=== PATIENT | male | born 1945 | race Caucasian/White ===

== ENCOUNTER 2018-06-21 23:08 | Inpatient (IN) | payer MEDICARE, BC ==
[~2018-06-21] VITALS: Ht 188 cm; Wt 97.5 kg
[2018-06-21] MEDS ORDERED: FLOMAX0.4 MG PO (23:25)
[2018-06-21] MEDS ORDERED: ALBUTEROL1.25 MG/3 (23:28)
[2018-06-21 23:44] LABS: BASOPHILS 0.2 % (0-2); EOSINOPHILS 2.4 % (0-7); HEMATOCRIT 46.4 % (42.0-54.0); IMMATURE GRANULOCYTES 0.1 % (0-5); LYMPHOCYTES 19.1 % (15-50); MCH 30.5 pg (26.0-34.0); MCHC 34.5 g/dL (31.0-37.0); MCV 88.5 fL (80.0-100.0); MEAN PLATELET VOLUME 10.8 fL (7.4-10.4); MONOCYTES 7.8 % (2-11); NEUTROPHILS 70.4 % (40-80); PLATELET COUNT 164 10x3/uL (130-400); RBC 5.24 10x6/uL (4.20-6.10); RDW 13.6 % (11.5-14.5); WBC 8.2 10x3/uL (4.8-10.8)
[2018-06-21 23:54] LABS: ALBUMIN 4.1 g/dL (3.4-5.0); ALKALINE PHOSPHATASE 109 U/L (46-116); ALT (SGPT) 42 U/L (10-68); BILIRUBIN - TOTAL 1.09 mg/dL (0.2-1.3); CALC OSMOLALITY 279 mosm/kg (275-300); CALCIUM 9.1 mg/dL (8.5-10.1); CARBON DIOXIDE 32.3 mmol/L (21.0-32.0); CHLORIDE - SERUM 102 mmol/L (98-107); CREATININE - SERUM 1.2 mg/dL (0.6-1.3); GLUCOSE 101 mg/dL (74-106); POTASSIUM - SERUM 4.2 mmol/L (3.5-5.1); PROTEIN - SERUM 7.7 g/dL (6.4-8.2); SODIUM 138 mmol/L (136-145); UREA NITROGEN 23 mg/dL (7-18); eGFR NON AFRICAN AMERICAN 63 mL/min (90-120)
[2018-06-21 23:57] LABS: AMYLASE - SERUM 83 U/L (25-115); LIPASE 104 U/L (73-393); TROPONIN-I < 0.017 ng/mL (0.000-0.060)
[2018-06-22 00:11] LABS: APPEARANCE CLEAR (CLEAR); BILIRUBIN NEGATIVE (NEGATIVE); COLOR YELLOW (YELLOW); GLUCOSE NEGATIVE (NEGATIVE); KETONE NEGATIVE (NEGATIVE); NITRITE NEGATIVE (NEGATIVE); PROTEIN NEGATIVE (NEGATIVE); UROBILINOGEN NORMAL (NORMAL)
[2018-06-22 01:00] VITALS: BP 130/72
[2018-06-22 03:00] VITALS: BP 132/71
--- NOTE | 2018-06-22 03:00 | NUR ---
RECEIVED PT TO FLOOR FROM ER VIA WHEELCHAIR. PT ALERT & ORIENTED. SET UP NUCLEAR SUPERVISING OPERATOR AND INSTRUCTED ON USE. VITAL SIGNS STABLE. REVIEWED HOME MEDS AND HISTORY. PT C/O ACID REFLUX. CALLED DR ARNOLD AND RECEIVED ORDER FOR PEPCID. NO OTHER NEEDS. WILL CONTINUE TO MONITOR.
[2018-06-22] MEDS ORDERED: PROSCAR5 MG PO (03:30)
[2018-06-22] MEDS ORDERED: LIPITOR40 MG PO (03:31)
[2018-06-22] MEDS ORDERED: TESTOSTERONE CYPIONA IM (03:32)
[2018-06-22] MEDS ORDERED: ALBUTEROL SULF8.5 GM (03:32)
[2018-06-22 05:23] VITALS: BP 132/71; BMI 27.6
--- NOTE | 2018-06-22 07:20 | NUR ---
PATIENT RECIEVED RESTING IN BED, DENIES NEEDS, REPORTS UPPER ABDOMINAL PAIN TOLERABLE WITH LABEL SEWER. PATIENT REFUSES SCD'S AND IS UP ADLIB
[2018-06-22 09:07] VITALS: BP 126/65
[2018-06-22 10:21] VITALS: Ht 188 cm; Wt 97.5 kg
[2018-06-22 14:16] VITALS: BP 108/57
[2018-06-22 17:15] VITALS: BP 117/57
--- NOTE | 2018-06-22 19:15 | NUR ---
RECEIVED CARE FROM DAY NURSE. LYING IN BED. REPORTS NO NEEDS AT THIS TIME. CALL LIGHT AT SIDE. IV INFUSING PER ORDER TO PATENT IV.
--- NOTE | 2018-06-22 21:58 | NUR ---
PT STATED PT HASN'T HAD A URINATED AND IS HAVING LOWER ABDOMINAL PAIN, DR CATALINA WHYTE STATED TO RESTART FLOMAX
--- NOTE | 2018-06-22 21:59 | NUR ---
HS CALLED ABOUT PULLING FLOMAX
--- NOTE | 2018-06-22 23:45 | NUR ---
HS CALLED ABOUT NEED FOR FLOMAX TO BE PULLED
[2018-06-23] VITALS: BP 119/61
[2018-06-23 03:00] VITALS: BP 125/66
--- NOTE | 2018-06-23 03:48 | NUR ---
I have reviewed this patient and I concur with the Shift Assessment completed by the Licensed Practical Nurse today this shift.
--- NOTE | 2018-06-23 04:15 | NUR ---
IV IN RIGHT FA SWOLLEN. DC'D WITH TIP INTACT. RESITED TO LEFT FA. 22 GAUGE X3 STICKS.
[2018-06-23 06:47] LABS: ALKALINE PHOSPHATASE 70 U/L (46-116); BILIRUBIN - TOTAL 1.55 mg/dL (0.2-1.3); CALCIUM 7.5 mg/dL (8.5-10.1); CHLORIDE - SERUM 107 mmol/L (98-107); GLUCOSE 104 mg/dL (74-106); POTASSIUM - SERUM 3.8 mmol/L (3.5-5.1); PROTEIN - SERUM 6.1 g/dL (6.4-8.2); SODIUM 139 mmol/L (136-145); eGFR NON AFRICAN AMERICAN 78 mL/min (90-120)
[2018-06-23 06:49] LABS: ALT (SGPT) 23 U/L (10-68); CALC OSMOLALITY 279 mosm/kg (275-300); UREA NITROGEN 17 mg/dL (7-18)
[2018-06-23 06:50] LABS: BASOPHILS 0.1 % (0-2); EOSINOPHILS 0.6 % (0-7); HEMATOCRIT 39.8 % (42.0-54.0); HEMOGLOBIN 13.3 g/dL (13.5-17.5); IMMATURE GRANULOCYTES 0.4 % (0-5); LYMPHOCYTES 5.8 % (15-50); MCHC 33.4 g/dL (31.0-37.0); MCV 89.6 fL (80.0-100.0); MEAN PLATELET VOLUME 10.5 fL (7.4-10.4); MONOCYTES 5.8 % (2-11); NEUTROPHILS 87.3 % (40-80); PLATELET COUNT 118 10x3/uL (130-400); RBC 4.44 10x6/uL (4.20-6.10); RDW 14.3 % (11.5-14.5); WBC 14.2 10x3/uL (4.8-10.8)
--- NOTE | 2018-06-23 07:20 | NUR ---
PATIENT RECIEVED RESTING IN BED, REPORTS MILD LOWER ABDOMINAL PAIN DUE TO DIVERTICULITIS, TOLERABLE WITH MORPHINE SUBSTATION OPERATOR CHIEF. NO NEEDS VOICED AT THIS TIME, CL IN REACH
[2018-06-23 09:54] VITALS: BP 113/57
[2018-06-23 13:43] VITALS: BP 116/65
[2018-06-23 17:49] VITALS: BP 129/73
--- NOTE | 2018-06-23 19:15 | NUR ---
RECEIVED CARE FROM DAY NURSE. UP AMBULATING IN HALLS.
[2018-06-23 20:00] VITALS: BP 133/61
[2018-06-24] VITALS: BP 132/65
[2018-06-24 03:00] VITALS: BP 130/71
[2018-06-24 07:49] LABS: BASOPHILS 0.1 % (0-2); HEMATOCRIT 37.7 % (42.0-54.0); HEMOGLOBIN 12.7 g/dL (13.5-17.5); IMMATURE GRANULOCYTES 0.3 % (0-5); LYMPHOCYTES 10.9 % (15-50); MCHC 33.7 g/dL (31.0-37.0); MCV 88.9 fL (80.0-100.0); MEAN PLATELET VOLUME 11.1 fL (7.4-10.4); MONOCYTES 7.6 % (2-11); NEUTROPHILS 80.1 % (40-80); PLATELET COUNT 115 10x3/uL (130-400); RBC 4.24 10x6/uL (4.20-6.10); RDW 14.3 % (11.5-14.5); WBC 11.7 10x3/uL (4.8-10.8)
--- NOTE | 2018-06-24 08:00 | NUR ---
MORNING ASSESSMENT COMPLETE. SEE ASSESSMENT FLOWSHEET FOR FURTHER DETIALS. PT LYING IN BED AAO X4 TO PERSON, PLACE, TIME, AND SITUATION. DENIES NEEDS AT THIS TIME. CL IN REACH. SIDE RAULS UP X3 FOR PT SAEFTY. BED IN LOWEST POSITION. L FA PIV INFILTRATED- WILL CALL VASCULAR FOR MIDLINE PLACEMENT.
[2018-06-24 08:07] LABS: CALC OSMOLALITY 281 mosm/kg (275-300); CALCIUM 7.2 mg/dL (8.5-10.1); CARBON DIOXIDE 26.4 mmol/L (21.0-32.0); CHLORIDE - SERUM 108 mmol/L (98-107); CREATININE - SERUM 0.9 mg/dL (0.6-1.3); GLUCOSE 103 mg/dL (74-106); POTASSIUM - SERUM 3.7 mmol/L (3.5-5.1); SODIUM 142 mmol/L (136-145); eGFR NON AFRICAN AMERICAN 88 mL/min (90-120)
[2018-06-24 08:11] LABS: UREA NITROGEN 10 mg/dL (7-18)
[2018-06-24 10:07] VITALS: BP 132/65
[2018-06-24 14:37] VITALS: BP 104/62
--- NOTE | 2018-06-24 15:19 | NUR ---
NUTRITION F/U DIET ADVANCED TO CLEAR LIQUID. WILL MONITOR FURTHER DIET ADVANCEMENT, PO INTAKE. ASSIST WITH NUTRITION SUPPORT IF NEEDED. RD FOLLOWING
[2018-06-24 18:12] VITALS: BP 166/78
--- NOTE | 2018-06-24 19:45 | NUR ---
PT UP AMBULATING IN HALLS. NO SIGNS OF DISTRESS. WILL CONT TO MONITOR
--- NOTE | 2018-06-24 21:00 | NUR ---
PT SITTING UP IN BED, NO SIGNS OF DISTRESS. ALERT AND ORIENTED. ABD DISTENDED, TENDER. PAIN CONTROLLED BY MORPHINE PROPERTY ANALYST. DENIES NEEDS AT THIS TIME. CL IN REACH, WILL CONT TO MONITOR
[2018-06-24 21:57] VITALS: BP 147/73
[2018-06-25 01:45] VITALS: BP 148/71
[2018-06-25 05:19] VITALS: BP 139/74
[2018-06-25 06:32] LABS: BASOPHILS 0.2 % (0-2); HEMATOCRIT 36.7 % (42.0-54.0); HEMOGLOBIN 12.4 g/dL (13.5-17.5); IMMATURE GRANULOCYTES 0.1 % (0-5); LYMPHOCYTES 9.4 % (15-50); MCHC 33.8 g/dL (31.0-37.0); MCV 88.6 fL (80.0-100.0); MEAN PLATELET VOLUME 10.9 fL (7.4-10.4); MONOCYTES 10.1 % (2-11); NEUTROPHILS 78.2 % (40-80); PLATELET COUNT 128 10x3/uL (130-400); RBC 4.14 10x6/uL (4.20-6.10); RDW 13.8 % (11.5-14.5)
[2018-06-25 06:37] LABS: WBC 8.4 10x3/uL (4.8-10.8)
[2018-06-25 07:34] LABS: CALC OSMOLALITY 276 mosm/kg (275-300); CALCIUM 7.4 mg/dL (8.5-10.1); CARBON DIOXIDE 26.3 mmol/L (21.0-32.0); CHLORIDE - SERUM 107 mmol/L (98-107); CREATININE - SERUM 0.9 mg/dL (0.6-1.3); GLUCOSE 124 mg/dL (74-106); POTASSIUM - SERUM 3.4 mmol/L (3.5-5.1); SODIUM 139 mmol/L (136-145); UREA NITROGEN 8 mg/dL (7-18); eGFR NON AFRICAN AMERICAN 88 mL/min (90-120)
--- NOTE | 2018-06-25 08:21 | NUR ---
AWAKE AND ALERT. ORIENTED X3. C/O TO MANY FLUIDS THIS AM. WILL MONITOR. LUNGS ARE CLEAR BUT DIMINISHED IN LOWER LOBES. SKIN IS INTACT IWTHOUT REDNESS. MIDLINE TO RIGHT UPPER ARM IS PATENT WITHOUT REDNESS AT INSERTION SITE. UP TO BR PER SELF. DENIES NEEDS.
[2018-06-25 08:55] VITALS: BP 130/74
--- NOTE | 2018-06-25 09:00 | NUR ---
OFF UNIT VIA FOR EXRAY.
--- NOTE | 2018-06-25 09:15 | NUR ---
RETURNED FROM [facility]. REPORTED NO DIFFICULTY WHILE GONE.
--- NOTE | 2018-06-25 11:00 | NUR ---
RESTING QUIETLY IN BED. DENIES NEEDS. NO SOB NOTED.
[2018-06-25 12:24] VITALS: BP 155/87
--- NOTE | 2018-06-25 14:00 | NUR ---
BED LINENS AND OXYGEN TUBING CHANGED PER REQUEST. DENIES FURTHER REQUESTS
[2018-06-25 16:45] VITALS: BP 108/72
--- NOTE | 2018-06-25 18:00 | NUR ---
IN ROOM. DENIES NEEDS. NO CHANGES NOTED.
--- NOTE | 2018-06-25 18:00 | NUR ---
UP AMBULATED IN HALLS PER SELF. DENIES NEEDS. NO SOB NOTED WITH EXERTION. NO CHANGES NOTED.
--- NOTE | 2018-06-25 19:45 | NUR ---
PT UP AMBULATING HALLS BY SELF. WITHOUT DISTRESS. ALERT AND ORIENTED. DENIES NEEDS. WILL CONT TO MONITOR
[2018-06-25 21:18] VITALS: BP 159/81
[2018-06-26 05:33] LABS: BASOPHILS 0.4 % (0-2); EOSINOPHILS 3.5 % (0-7); HEMATOCRIT 37.8 % (42.0-54.0); HEMOGLOBIN 12.8 g/dL (13.5-17.5); LYMPHOCYTES 14.7 % (15-50); MCH 29.6 pg (26.0-34.0); MCHC 33.9 g/dL (31.0-37.0); MCV 87.5 fL (80.0-100.0); MEAN PLATELET VOLUME 10.6 fL (7.4-10.4); MONOCYTES 14.8 % (2-11); NEUTROPHILS 66.6 % (40-80); RBC 4.32 10x6/uL (4.20-6.10); RDW 13.6 % (11.5-14.5); WBC 7.6 10x3/uL (4.8-10.8)
[2018-06-26 05:47] LABS: CALC OSMOLALITY 286 mosm/kg (275-300); CALCIUM 7.9 mg/dL (8.5-10.1); CARBON DIOXIDE 28.2 mmol/L (21.0-32.0); CHLORIDE - SERUM 109 mmol/L (98-107); CREATININE - SERUM 0.9 mg/dL (0.6-1.3); GLUCOSE 104 mg/dL (74-106); POTASSIUM - SERUM 3.2 mmol/L (3.5-5.1); SODIUM 145 mmol/L (136-145); UREA NITROGEN 7 mg/dL (7-18); eGFR NON AFRICAN AMERICAN 88 mL/min (90-120)
[2018-06-26 05:53] LABS: PLATELET COUNT 157 10x3/uL (130-400)
[2018-06-26 05:59] VITALS: BP 164/84
[2018-06-26] MEDS ORDERED: LEVAQUIN750 MG PO (08:58)
[2018-06-26] MEDS ORDERED: HYDROCODON-ACE1 EA10 PO (08:59)
[2018-06-26] MEDS ORDERED: FLAGYL500 MG PO (08:59)
--- NOTE | 2018-06-26 09:16 | MORECARE ---
CASE MANAGEMENT DISCHARGE SUMMARY PATIENT: ASHER CHOE UNIT: [id number] ADM DATE: 06/22/18 AGE: 73 : 47 SEX: M ROOM/BED: D.2230 AUTHOR: SILVIANO JARRELL PHYSICIAN: REFERRING PHYSICIAN: KAREY ARNOLD MD DATE OF SERVICE: 06/26/18 Discharge Plan Patient Name: ASHER CHOE Facility: [facility]:[place] : 1945 Planned Disposition: Home Anticipated Discharge Date: 06/26/18 Discharge Date: Expected LOS: 4 Initial Reviewer: [email or web address] Initial Review Date: 06/26/2018 Generated: 06/26/18 10:16 am Patient Name: ASHER CHOE Page [id number] at 0916 All edits/amendments must be made on the electronic document DICTATION DATE: 06/26/18915 DEVELOPER ANALYST: KENDALL 06/26/18915 RPT#: [id number] DC DATE: STATUS: ADM IN [facility] [address] [place] [address] END OF REPORT
--- NOTE | 2018-06-26 09:24 | MORECARE ---
CASE MANAGEMENT DISCHARGE SUMMARY PATIENT: ASHER CHOE UNIT: [id number] ADM DATE: 06/22/18 AGE: 73 : 47 SEX: M ROOM/BED: D.2230 AUTHOR: SILVIANO JARRELL PHYSICIAN: REFERRING PHYSICIAN: KAREY ARNOLD MD DATE OF SERVICE: 06/26/18 Discharge Plan Patient Name: ASHER CHOE Facility: [facility]:[place] : 1945 Planned Disposition: Home Anticipated Discharge Date: 06/26/18 Discharge Date: Expected LOS: 4 Initial Reviewer: [email or web address] Initial Review Date: 06/26/2018 Generated: 06/26/18 10:23 am Comments DCP- Discharge Planning Updated by [email or web address]: Sylvia Kennedy on 06/26/18 8:[address] Patient Name: ASHER CHOE Admission Status: ER Accout number: [id number] Admission Date: 06-22-2018 : 1945 Admission Diagnosis: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 CM educated patient on the CM role and verbal consent given by patient to complete assessment. Patient lives at home with his . At discharge patient plans to return and feels this is a safe discharge. CM discussed availability of home health, rehab services, and medical equipment. Patient denied known discharge needs at this time. He is being discharged home today, declines home health. States he's still very active and independent. CM will continue to follow and will assist as needed with dc plans/needs. Oil Sprayer: Sylvia Kennedy DCPIA - Discharge Planning Initial Assessment Updated by [email or web address]: Sylvia Kennedy on 06/26/18 9:16 am * Is the patient Alert and Oriented? Yes * How many steps to enter\exit or inside your home? 0/0 * PCP Dr. Hernandez * Pharmacy [facility] or mail order * Preadmission Environment Home with Family * ADLs Independent * Equipment CPAP Nebulizer Oxygen * List name and contact numbers for known caregivers / representatives who currently or will assist patient after discharge: Mari henson - [phone] (home) [phone] * Verbal permission to speak to the caregivers and representatives has been obtained from the patient. Yes * Community resources currently utilized None * Please name any agencies selected above. [facility] is DME * Additional services required to return to the preadmission environment? No * Can the patient safely return to the preadmission environment? Yes * Has this patient been hospitalized within the prior 30 days at any hospital? No Coverage Notice Reviewer: [email or web address] Virgilio Kennedy Notice Issued Date-Time: 06/26/2018 9:18 Notice Type: IM Discharge Notice Notice Delivered To: Patient Relationship to Patient: Self Project Design Engineer Name: Delivery Method: HAND - Hand Delivered Nadia Days: Prior Verbal Notification: Recipient Understood Notice: Yes Recipient Signature: Yes Med Rec Note Co-signed by Attending: Coverage Notice Comment: IMM explained, signed, given, copy placed in MR Last DP export: 06/26/18 8:16 a Patient Name: ASHER CHOE Page [phone] at 0924 All edits/amendments must be made on the electronic document DICTATION DATE: 06/26/18922 CAD INTERN: KENDALL 06/26/18922 RPT#: [id number] DC DATE: STATUS: ADM IN [facility] [address] [place] [address] END OF REPORT
[2018-06-26 09:41] VITALS: BP 154/75
--- NOTE | 2018-06-26 11:25 | NUR ---
MIDLINE REMOVED FROM RIGHT UPPER ARM, MINIMAL BLEEDING NOTED. COVERED WITH STERILE DRESSING. DISCHARGE INSTRUCTIONS GIVEN TO PATIENT ALONG WITH [facility].
--- NOTE | 2018-06-26 12:34 | NUR ---
PATIENT REQUEST TO WALK TO FRONT DOOR TO MEET .
== END 2018-06-26 12:35 | disposition home or self-care (01) | DRG 392 ==
LOC: D.ER 23:08 → D.MS 06-22 01:22
PROVIDERS: Family Medicine; ADMIT Surgery; ATTEND Surgery
DX: K57.20 Diverticulitis of large intestine with perforation and abscess without bleeding (principal); J45.909 Unspecified asthma, uncomplicated

== ENCOUNTER 2019-11-27 12:26 | Inpatient (IN) | payer MEDICARE, BC ==
[~2019-11-27] VITALS: Ht 188 cm; Wt 96.8 kg
[2019-11-27] VITALS (7 sets, daily range): BP systolic 115–155; BP diastolic 74–90
--- NOTE | ~2019-11-27 | HEMODYNAMI ---
PATIENT:ASHER CHOE MEDICAL RECORD: [id number] : 49 LOCATION:Seth Seth2215 ADMISSION DATE: 11/27/19 Generatedon:11/30/201912:01 Patient name: ASHER CHOE Patient #: [id number] SSN: : 1945 Date of study: 11/30/2019 Page: Of Hemodynamic Procedure Report Patient Data Patient Demographics Procedure consent was obtained First Name: ASHER Gender: Male Last Name: DAIJA : 1945 Middle Initial: CORNELIUS Age: 74 year(s) Patient #: [id number] Race: Unknown Additional ID: [id number] Contact details [address]: [address] [place] [address] State: [place] City: [place] Zip code: [address] Admission Admission Data Admission Date: 11/27/2019 Admission Time: 14:09 Room #: D.2215 Procedure Procedure Types Cath Procedure Peripheral Cath Diagnostic Procedure Miscellaneous Chest Tube Placement Procedure Description Procedure Date Procedure Date: 11/30/2019 Procedure Start Time: 11:35 Procedure Staff Name Function Susan Cote MD Performing Physician DELLA VALENTINE RT Monitor Johnathon Donnelly RT Scrub Lori LABOY RN Nurse Procedure Data Cath Procedure Fluoroscopy Diagnostic fluoroscopy Total fluoroscopy Time: 1 time: 1 min min Diagnostic fluoroscopy Total fluoroscopy dose: 7 dose: 7 mGy mGy Procedure Medications Medication Administration Route Dosage Fentanyl I.V. 100 mcg Hemodynamics Rest Heart Rate: 92 (bpm) Snapshots Pre Cath Intra NCS Post Cath Vital Signs Time Heart Resp SPO2 etCO2 NIBP (mmHg) Rhythm Pain Sedation Rate (ipm) (%) (mmHg) Status Level (bpm) 11:34:25 88 8 0 158/94(125) NSR 0 (11) 10(A) , No pain 11:38:47 91 13 95 0 158/83(132) NSR 0 (11) 10(A) , No pain 11:43:07 101 17 96 0 169/99(125) NSR 0 (11) 10(A) , No pain 11:47:29 89 17 93 0 158/87(114) NSR 0 (11) 10(A) , No pain 11:52:06 91 24 93 0 143/75(121) NSR 0 (11) 10(A) , No pain 11:56:05 0 No Cuff NSR 0 (11) 10(A) , No pain 12:00:05 0 No Cuff NSR 0 (11) 10(A) , No pain Medications Time Medication Route Dose Verified Delivered Reason Notes Effectivenes s by by 11:40:46 Fentanyl I.V. 100 M J Rocael Minner for [facility] MD LABOY pain flattening press operator Log Time Note 11:07:29 Use device set IR Diagnostic 11:07:30 Bag Decanter (2002S) opened to sterile field. 11:07:30 Sterile Angiographic Pack opened to sterile field. 11:07:31 Tegaderm 4 x 4 (1626W) opened to sterile field. 11:21:24 Johnathon [facility] RT (R) (CV) sent for patient. Start room use. 11:21:40 Time tracking: Regular hours (M-F 7:00 - 5:00) 11:22:03 Plan of Care:Hemodynamics will remain stable., Cardiac rhythm will remain stable., Comfort level will be maintained., Respiratory function will remain adequate., Patient/ family verbilizes understanding of procedure., Procedure tolerated without complication., Recovers from procedure without complications.. 11:22:11 Patient received from Med/Surg to IR Alert and oriented. Tansferred to table in Supine position. 11:22:15 Signed procedure consent form obtained from patient. 11:22:17 Correct patient and procedure confirmed by team. 11:22:18 ECG and BP/O2 sat monitors applied to patient. 11:22:20 Full Disclosure recording started 11:22:22 - 11:22:28 H&P Date Dictated: 11/30/2019 Within 30 days and on chart.. 11:22:38 Pre-procedure instructions explained to patient. 11:22:39 Pre-op teaching completed and patient verbalized understanding. 11:22:41 Family unavailable. 11:22:48 Is the patient allergic to Iodine/contrast media? No. 11:22:50 Is patient on blood thinner?No 11:22:53 Patient diabetic? No. 11:22:59 ----Pre-sedation anethsthesia assessment.---- 11:23:04 Previous problem with sedation/anesthesia? No ? 11:23:06 Snore? No 11:23:07 Sleep apnea? No 11:23:10 Deviated septum? No 11:23:14 Opens mouth fully? Yes 11:23:15 Sticks out tongue? Yes 11:23:26 Airway obstruction? No ? 11:23:28 Dentures? No ? 11:23:40 IV patent on arrival in left hand with 0.9% NaCl at [facility]. 11:23:46 Sharps counted by scrub and verified by R.N. 11:23:46 Alarms reviewed by R. N. 11:23:58 Right Chest was prepped with chlora-prep and draped in sterile fashion. 11:33:11 Vital chart was started 11:33:12 Baseline sample Acquired. 11:33:45 Physician arrived 11:33:46 --------ALL STOP TIME OUT------ 11:33:47 Final Timeout: patient, procedure, and site verified with staff and physician. All members of the team are in agreement. 11:33:53 Right chest site verified by team. 11:34:00 Fire Safety Assessment: A--An alcohol-based skin anteseptic being used preoperatively., C--Open oxygen or nitrous oxide is being used. 11:34:09 Sedation plan: Local Anesthetic Medication:Lidocaine 11:35:21 Procedure started. 11:35:27 Local anesthetic to Chest area with Lidocaine 1% by Susan Cote MD.INITIAL ACCESS ONLY 11:36:36 GLIDE WIRE ANGLE 180cm ([id number]) opened to sterile field. 11:36:37 Cook MULTIPURPOSE 20FR drainage catheter ([id number]) opened to sterile field. 11:40:08 Drain bag connector([id number]) opened to sterile field. 11:40:46 Fentanyl 100 mcg I.V. was administered by Lori LABOY RN; for pain; Verbal order read back and verified. 11:42:08 GLIDE WIRE ANGLE 180cm (KT5250) opened to sterile field. 11:42:08 STOPCOCK 3-Way Large Bore ([id number]) opened to sterile field. 11:44:07 PEEL-A-WAY INTRODUCER 18 FR opened to sterile field. 11:49:06 Procedure ended.(Physican Out) 11:49:24 Fluoroscopy time 01.00 minutes. 11:49:28 Fluoroscopy dose: 7 mGy 11:49:28 Flurop Dose total: 7 11:49:31 Sharps counted by scrub and verified by R.N. 11:49:32 Insertion/operative site no bleeding no hematoma. 11:50:17 Post Chest area:stable 11:51:14 Post procedure instruction explained to patient.Patient verbalizes understanding. 11:51:15 Procedure and supply charges have been captured, reviewed, submitted an d are correct. 11:59:19 Report given to CVICU. 11:59:55 Patient transfered to CVICU with Bed. 12:01:19 Vital chart was stopped Device Usage Item Name Manufacture Quantity Catalog Hospital Part Current [facility] Lot# / Number Charge Number Stock Stock Serial# Code Bag Decanter Microtek 1 [id number] 91425 [id number] 5 () Medical Inc. Sterile Cardinal 1 [id number] [id number] 5 Angiographic [facility] Tegaderm 4 x 4 3M 1 1626W 605808 322971 [id number] 5 (1626W) GLIDE WIRE ANGLE Terumo 2 [id number] 163255 244248 175187 5 180cm ([id number]) Cook MULTIPURPOSE [employer] 1 [id number] 481948 083279 5 [id number] 20FR drainage catheter ([id number]) Drain bag [employer] 1 [id number] 893530 441065 [id number] 5 [id number] connector([id number]) STOPCOCK 3-Way [employer] 1 I92948 108903 3101 568111 5 [id number] Large Bore (H84116) PEEL-A-WAY [employer] 1 [id number] 808746 621106 540487 1 [id number] INTRODUCER 18 FR Signature Audit [place] Stage Time Signature Unsigned Intra-Procedure 11/30/2019 Johnathon 12:01:15 PM [place] RT (R) (CV) [facility] [address] [place] [address]
[~2019-11-27 12:26] MED LIST: ALBUTEROL SULF8.5 GM; ALBUTEROL1.25 MG/3; FLAGYL500 MG PO; FLOMAX0.4 MG PO; HYDROCODON-ACE1 EA10 PO; LEVAQUIN750 MG PO; LIPITOR40 MG PO; PROSCAR5 MG PO; TESTOSTERONE CYPIONA IM
[2019-11-27 12:58] LABS: BASOPHILS 0.3 % (0-2); EOSINOPHILS 1.8 % (0-7); HEMATOCRIT 49.6 % (42.0-54.0); IMMATURE GRANULOCYTES 0.2 % (0-5); LYMPHOCYTES 15.3 % (15-50); MCH 31.3 pg (26.0-34.0); MCHC 34.3 g/dL (31.0-37.0); MCV 91.3 fL (80.0-100.0); MEAN PLATELET VOLUME 10.3 fL (7.4-10.4); NEUTROPHILS 74.4 % (40-80); PLATELET COUNT 147 10x3/uL (130-400); RBC 5.43 10x6/uL (4.20-6.10); RDW 14.7 % (11.5-14.5); WBC 8.7 10x3/uL (4.8-10.8)
[2019-11-27 13:09] LABS: CALC OSMOLALITY 275 mosm/kg (275-300); CALCIUM 9.1 mg/dL (8.5-10.1); CARBON DIOXIDE 25.5 mmol/L (21.0-32.0); CHLORIDE - SERUM 103 mmol/L (98-107); CREATININE - SERUM 0.9 mg/dL (0.6-1.3); GLUCOSE 108 mg/dL (74-106); POTASSIUM - SERUM 4.2 mmol/L (3.5-5.1); SODIUM 137 mmol/L (136-145); UREA NITROGEN 16 mg/dL (7-18); eGFR NON AFRICAN AMERICAN 88 mL/min (90-120)
[2019-11-27 13:15] LABS: APTT 33.2 SECONDS (22.8-39.4); INR 0.98 (0.85-1.17)
[2019-11-27 13:25] LABS: ALBUMIN 4.1 g/dL (3.4-5.0); ALKALINE PHOSPHATASE 136 U/L (30-120); ALT (SGPT) 37 U/L (10-68); BILIRUBIN - TOTAL 1.19 mg/dL (0.2-1.3); CREATINE KINASE 404 UL (21-232); PRO BNP 30 pg/mL (0-125); PROTEIN - SERUM 7.7 g/dL (6.4-8.2)
[2019-11-27 13:27] LABS: TROPONIN-I < 0.017 ng/mL (0.000-0.060)
[2019-11-27] MEDS ORDERED: LEXAPRO20 MG PO (19:38)
[2019-11-28 04:55] LABS: BASOPHILS 0.3 % (0-2); EOSINOPHILS 1.9 % (0-7); HEMATOCRIT 47.1 % (42.0-54.0); HEMOGLOBIN 15.9 g/dL (13.5-17.5); IMMATURE GRANULOCYTES 0.1 % (0-5); LYMPHOCYTES 18.9 % (15-50); MCH 31.1 pg (26.0-34.0); MCHC 33.8 g/dL (31.0-37.0); MEAN PLATELET VOLUME 10.5 fL (7.4-10.4); MONOCYTES 9.8 % (2-11); PLATELET COUNT 145 10x3/uL (130-400); RBC 5.12 10x6/uL (4.20-6.10); RDW 14.7 % (11.5-14.5); WBC 7.9 10x3/uL (4.8-10.8)
[2019-11-28 05:15] LABS: CALC OSMOLALITY 275 mosm/kg (275-300); CALCIUM 8.6 mg/dL (8.5-10.1); CARBON DIOXIDE 26.1 mmol/L (21.0-32.0); CHLORIDE - SERUM 102 mmol/L (98-107); GLUCOSE 106 mg/dL (74-106); POTASSIUM - SERUM 4.2 mmol/L (3.5-5.1); SODIUM 137 mmol/L (136-145); UREA NITROGEN 19 mg/dL (7-18); eGFR NON AFRICAN AMERICAN 78 mL/min (90-120)
--- NOTE | 2019-11-28 07:00 | NUR ---
ASSUMED CARE OF PATIENT, PATIENT AAOX4, NO DISTRESS NOTED, CHEST TUBE INTACT, WILL CONTINUE TO MONITOR PATIENT, CALL LIGHT WITHIN REACH
--- NOTE | 2019-11-28 08:30 | NUR ---
WAS GOING TO GIVE MORPHINE IV, BUT PATIENTS IV OUT. CAHT TIP INTACT. TRIED TO RESTART X 2. VEINS BLEW EACH TIME. RADHA RN TO RESTART.
[2019-11-28 09:07] VITALS: BP 141/72
--- NOTE | 2019-11-28 10:00 | NUR ---
RADHA ASHRAF STARTED IV IN LEFT FA X 1 STICK. TOLERATED WITH SMALL AMOUNT OF PAIN. MORPHINE IV TO BE GIVEN.
[2019-11-28 12:31] VITALS: BP 127/61
[2019-11-28 13:29] VITALS: BMI 27.8
--- NOTE | 2019-11-28 16:14 | NUR ---
PATIENT IN BED WITH EYES CLOSED RESTING QUIETLY. CALL LIGHT WITHIN REACH.
[2019-11-28 17:31] VITALS: BP 140/77
[2019-11-28 19:39] VITALS: BMI 27.9
[2019-11-28 22:24] VITALS: BP 125/56
[2019-11-29 01:13] VITALS: BP 174/84
[2019-11-29 06:14] VITALS: BP 148/75
[2019-11-29 06:30] LABS: BASOPHILS 0.2 % (0-2); EOSINOPHILS 2.4 % (0-7); HEMATOCRIT 46.7 % (42.0-54.0); HEMOGLOBIN 15.5 g/dL (13.5-17.5); IMMATURE GRANULOCYTES 0.2 % (0-5); LYMPHOCYTES 16.6 % (15-50); MCH 31.1 pg (26.0-34.0); MCHC 33.2 g/dL (31.0-37.0); MCV 93.6 fL (80.0-100.0); MEAN PLATELET VOLUME 10.6 fL (7.4-10.4); MONOCYTES 12.8 % (2-11); NEUTROPHILS 67.8 % (40-80); PLATELET COUNT 128 10x3/uL (130-400); RBC 4.99 10x6/uL (4.20-6.10); RDW 14.5 % (11.5-14.5); WBC 8.1 10x3/uL (4.8-10.8)
--- NOTE | 2019-11-29 08:00 | NUR ---
PATIENT IN BED WITH EYES CLOSED RESTING QUIETLY. IV INTACT. CT INTACT. CANISTER DUMPED OVER DURING THE NIGHT. CHANGED OUT. NO COMPLAINTS. CALL LIGHT WITHIN REACH.
[2019-11-29 08:57] LABS: CALC OSMOLALITY 269 mosm/kg (275-300); CALCIUM 8.6 mg/dL (8.5-10.1); CARBON DIOXIDE 27.3 mmol/L (21.0-32.0); CHLORIDE - SERUM 100 mmol/L (98-107); CREATININE - SERUM 0.8 mg/dL (0.6-1.3); GLUCOSE 88 mg/dL (74-106); POTASSIUM - SERUM 4.3 mmol/L (3.5-5.1); SODIUM 135 mmol/L (136-145); UREA NITROGEN 14 mg/dL (7-18); eGFR NON AFRICAN AMERICAN > 90 mL/min (90-120)
--- NOTE | 2019-11-29 09:00 | NUR ---
PATIENT COMPLAINTS OF PAIN AND BEING SHORT OF BREATH. O2 SATS WITHIN NORMAL LIMITS. CHEST TUBE INTACT. CALLED RESPIRATORY FOR BREATHING TREATMENT. PATIENT WHEEZING AT THIS TIME. MORPHINE GIVEN. PATIENT VOMITTED AFTER MORPHINE. STATES HE IS BETTER HE IS JUST WANTING A TREATMENT. IV INTACT. RESPIRATORY TO ROOM. CALL LIGHT WITHIN REACH.
[2019-11-29 11:20] VITALS: Ht 188 cm; Wt 96.8 kg
--- NOTE | 2019-11-29 11:20 | NUR ---
PATIENT IN BED WITH IV INTACT. EYES CLOSED RESTING QUIETLY. CT INTACT. CALL LIGHT WITHIN REACH.
[2019-11-29 16:00] VITALS: BP 148/79
--- NOTE | 2019-11-29 20:02 | NUR ---
ASSUMED CARE OF PATIENT AT 1900, PATIENT RESTING QUIETLY WATCHING TV, NO DISTRESS NOTED, RIGHT CHEST TUBE INTACT, DENIES NEEDS AT THIS TIME, WILL CONTINUE TO MONITOR PATIENT, CALL LIGHT WITHIN REACH
[2019-11-29 21:14] VITALS: BP 154/82
[2019-11-30] VITALS (20 sets, daily range): BP systolic 102–169; BP diastolic 49–102
[2019-11-30 06:01] LABS: BASOPHILS 0.4 % (0-2); EOSINOPHILS 2.6 % (0-7); HEMATOCRIT 42.8 % (42.0-54.0); HEMOGLOBIN 14.2 g/dL (13.5-17.5); IMMATURE GRANULOCYTES 0.1 % (0-5); MCH 30.3 pg (26.0-34.0); MCHC 33.2 g/dL (31.0-37.0); MEAN PLATELET VOLUME 10.5 fL (7.4-10.4); MONOCYTES 10.5 % (2-11); NEUTROPHILS 65.4 % (40-80); PLATELET COUNT 148 10x3/uL (130-400); RBC 4.69 10x6/uL (4.20-6.10); RDW 14.3 % (11.5-14.5); WBC 7.1 10x3/uL (4.8-10.8)
[2019-11-30 06:11] LABS: MCV 91.3 fL (80.0-100.0)
[2019-11-30 06:28] LABS: CALC OSMOLALITY 271 mosm/kg (275-300); CALCIUM 8.5 mg/dL (8.5-10.1); CARBON DIOXIDE 25.9 mmol/L (21.0-32.0); CHLORIDE - SERUM 102 mmol/L (98-107); CREATININE - SERUM 0.8 mg/dL (0.6-1.3); GLUCOSE 95 mg/dL (74-106); POTASSIUM - SERUM 3.9 mmol/L (3.5-5.1); SODIUM 136 mmol/L (136-145); UREA NITROGEN 13 mg/dL (7-18); eGFR NON AFRICAN AMERICAN > 90 mL/min (90-120)
--- NOTE | 2019-11-30 08:00 | NUR ---
PATIENT IN BED WITH EYES CLOSED RESTING QUIETLY. NO COMPLAINTS OR SIGNS OF DISTRESS. CALL LIGHT WITHIN REACH .
--- NOTE | 2019-11-30 09:15 | NUR ---
PATIENT STATED HE HAS BEEN SHORT OF BREATH AND TRYING TO GET SOMEONE IN HIS ROOM TO HELP HIM. HE SAID HIS CALL LIGHT WAS ON AND HE WAS YELLING FOR SOMEONE TO COME IN THE ROOM. EXPLAINED TO PATIENT THAT I HAVE BEEN RUNNING IN AND OUT OF ROOMS AND THAT HIS CALL LIGHT WAS NOT ON WHEN I WAS OUT OF THE ROOMS NOR DID I HEAR ANY YELLING. RESPIRATORY IN TO GIVE BREATHING TREATMENT. CHECKED CALL LIGHT AT THIS TIME. NO PROBLEMS NOTED. EXPLAINED TO PATIENT THAT IF HE IS GOING TO GET UP AND GO TO THE BATHROOM HE CAN NOT TAKE HIS O2 OFF AND THAT THE TUBING IS LONG ENOUGH TO GO TO THE BR WITH HIM AND IF HE DOESNT WEAR O2 HE WILL CONTINUE TO BE SOB WHILE GETTING UP. VERBALIZED UNDERSTANDING. IV INTACT. NO MORE COMPLAINTS. CALL LIGHT WITHIN REACH.
--- NOTE | 2019-11-30 09:40 | NUR ---
DR. ALVA STATED TO CALL DR. DONG TO SEE IF HE NEEDS WANTS TO READJUST CT BECAUSE HIS PNEUMO LOOKS LARGER. CALLED DR. DONG. HE STATED HE WOULD LOOK AT THE XRAY.
--- NOTE | 2019-11-30 11:00 | NUR ---
PATIENT TO IR TO GET CT ADJUSTED AT THIS TIME. CONSENT SIGNED ALREADY. GOING TO CVICU AFTER PROCEDURE. WILL HAVE SURGERY TOMORROW WITH DR. GAN.
--- NOTE | 2019-11-30 18:48 | NUR ---
1300-RECIEVED PER PER FLOW SHEET-R LATERAL CHEST TUBE-TO WALL SUCTION-LARGE AIRLEAK NOTED-NO DRAINAGE-ATTEMPED ADDITIONAL IV START X3 WITH NO RESULT-22 L LATERAL SALINE 1630-DR GAN CONTACTED FOR ORIGINAL ORDERS 1730-ANESTHESIA NOTIFIED OF OR IN AM -ORDER REICEVED- 1800-LAB DRAWN FOR TYPE AND SCREEN-CONSENTS OBTAINED
[2019-12-01] VITALS (24 sets, daily range): BP systolic 98–164; BP diastolic 42–89
[2019-12-01 04:43] LABS: BASOPHILS 0.3 % (0-2); EOSINOPHILS 2.4 % (0-7); HEMATOCRIT 44.1 % (42.0-54.0); HEMOGLOBIN 14.6 g/dL (13.5-17.5); IMMATURE GRANULOCYTES 0.1 % (0-5); LYMPHOCYTES 17.1 % (15-50); MCH 30.7 pg (26.0-34.0); MCHC 33.1 g/dL (31.0-37.0); MCV 92.6 fL (80.0-100.0); MEAN PLATELET VOLUME 10.2 fL (7.4-10.4); MONOCYTES 11.7 % (2-11); NEUTROPHILS 68.4 % (40-80); PLATELET COUNT 155 10x3/uL (130-400); RBC 4.76 10x6/uL (4.20-6.10); RDW 14.3 % (11.5-14.5); WBC 7.4 10x3/uL (4.8-10.8)
[2019-12-01 05:07] LABS: CALC OSMOLALITY 270 mosm/kg (275-300); CARBON DIOXIDE 31.2 mmol/L (21.0-32.0); CHLORIDE - SERUM 101 mmol/L (98-107); CREATININE - SERUM 0.9 mg/dL (0.6-1.3); GLUCOSE 92 mg/dL (74-106); SODIUM 135 mmol/L (136-145); UREA NITROGEN 14 mg/dL (7-18); eGFR NON AFRICAN AMERICAN 88 mL/min (90-120)
[2019-12-01 05:10] LABS: POTASSIUM - SERUM 4.9 mmol/L (3.5-5.1)
--- NOTE | 2019-12-01 10:25 | NUR ---
PT ARRIVED IN THE UNIT. PT HOOKED TO ICU MONITORS. PER ISAIAS ASHRAF, PT IS RECEIEVING A UPDRAFT TREATMENT. PT HAS CRACKLES NOTED THROUGH BOTH LUNGS. PT ON A SIMPLE MASK. NSR ON THE MONITOR WITH OCCASIONAL PAC'S. RIGHT SUBCLAVIAN CVL NOTED. SEE IV FLOW SHEET FOR DRUGS. RIGHT LATERAL CHEST TUBES X2 LABLED A AND P CONNECTED TO 20 CM H2O SUCTION WITH SMALL AIR LEAK. FC NOTED WITH CLEAR, YELLOW URINE. EPIDURAL NOTED MIDBACK DRESSING C/D/I. 4ML CONT WITH 4ML Q15 PRN BOLUS. PT AWAKE BUT LETHARGIC FROM ANESTESIA. PT FOLLOWING COMMANDS BUT DRIFS BACK TO SLEEP VERY EAZILY. LEFT RADIAL HEATHER NOTED WITH A GOOD WAVE FORM. WRIST PROTECTOR IN PLACE. CAP REFILL <3 SECONDS. CALL LIGHT IN REACH. WILL GIVE 1:1 CARE UNTILL STABLE.
--- NOTE | 2019-12-01 11:07 | NUR ---
Nutrition Follow-up: NPO for thoracotomy today. Wt: 213# (11/30) Last BM: 11/29 per chart Labs noted: Na 135 Meds noted: Miralax, Mylicon, Protonix -Rec resume diet as tolerated when medically feasible. -Monitor wt. -RD following.
--- NOTE | 2019-12-01 11:20 | NUR ---
DR BRITT PAGED AND NOITIFIED OF 10/[address] BRITT AT THE PTS BEDSIDE AND TOOK OUT OLD EPIDURAL AND PLACED ANOTHER EPIDURAL AT T 10-11. PT NOW STATES PAIN IS 8/10 BUT IS RESTING WITH HIS EYES CLOSED SNORING. VSS. PT APPERS LI. WILL CONT 1:1 CARE.
--- NOTE | 2019-12-01 15:00 | NUR ---
PT STATES PAIN IS 10/10. PT GRIMICING, MOAINING AND GROINING. VESSEL SPECIALIST NOT EFFECTIVE. DR BRITT PAGED. FISH AND WILDLIFE TECHNICIAN AT THE PTS BEDSIDE AND INCREASE RATE TO 5ML WITH 5ML BOLUS. AFTER 15 MINS, PT'S PAIN STILL INTEANSE. DR BRITT PAGED AGAIN AND AT THE PTS BEDSIDE. RATE 10ML/H WITH 5ML BOLUS. PT PAIN NOW 5/10 VSS. WILL CONT PCO.
--- NOTE | 2019-12-01 15:29 | NUR ---
PT BECAME HYPOTENSIVE AND TC INITIATED. PT WAS SCRATING HIS NOSE AND THEN HIS ARM WENT LIMP. PT STATES "MY ARM IS NUMB." PT BREATHING NORMAL AND UNLABORED. TC TITRATED AND BP 120'S/60'S. DR BRITT NOTIFIED. DR MAST CAME TO THE BEDSIDE AND TURNED EPIDURAL OFF. VSS AT THIS TIME. WILL CONT POC.
--- NOTE | 2019-12-01 17:16 | NUR ---
DR BRITT AT THE PTS BEDSDIE AND TURNED EPIDURAL BACK ON CNO 8ML/H ITH 5ML BOLUS. VSS. TC TIRATED OFF.
--- NOTE | 2019-12-01 18:29 | NUR ---
AFIB RATE 100-130'S AND BP MARGINAL AT 98/56. DR HOOPER PAGED. RESTART IV AMIO AT 1MG/H AND KEEP 1MG/H OVER NIGHT. IF PATIENT HEART RATE DOSENT SLOW DOWN AFTER A COUPLE HOURS, CALL DR HOOPER BACK.
[2019-12-02] VITALS (21 sets, daily range): BP systolic 120–151; BP diastolic 53–76
--- NOTE | 2019-12-02 01:28 | NUR ---
ANESTHESIA PAGED AT 0052 WITH RETURN CALL AT 0054. REPORTED AMOUNT OF FENTANYL LEFT IN EPIDURAL. FENTANYL BAG CHANGED BY ANESTHESIA AT 0128.
[2019-12-02 06:13] LABS: BASOPHILS 0.2 % (0-2); EOSINOPHILS 0.4 % (0-7); HEMATOCRIT 41.7 % (42.0-54.0); HEMOGLOBIN 13.7 g/dL (13.5-17.5); IMMATURE GRANULOCYTES 0.3 % (0-5); LYMPHOCYTES 9.5 % (15-50); MCH 30.6 pg (26.0-34.0); MCHC 32.9 g/dL (31.0-37.0); MCV 93.3 fL (80.0-100.0); MEAN PLATELET VOLUME 10.1 fL (7.4-10.4); NEUTROPHILS 77.6 % (40-80); PLATELET COUNT 144 10x3/uL (130-400); RBC 4.47 10x6/uL (4.20-6.10); RDW 14.6 % (11.5-14.5)
[2019-12-02 06:14] LABS: WBC 11.2 10x3/uL (4.8-10.8)
[2019-12-02 06:33] LABS: ALBUMIN 3.2 g/dL (3.4-5.0); BILIRUBIN - TOTAL 2.57 mg/dL (0.2-1.3); CALCIUM 8.1 mg/dL (8.5-10.1); CARBON DIOXIDE 26.4 mmol/L (21.0-32.0); CREATININE - SERUM 1.1 mg/dL (0.6-1.3); MAGNESIUM - SERUM 2.2 mg/dL (1.8-2.4); PHOSPHOROUS 3.6 mg/dL (2.5-4.9); POTASSIUM - SERUM 4.4 mmol/L (3.5-5.1); PROTEIN - SERUM 6.6 g/dL (6.4-8.2)
--- NOTE | 2019-12-02 07:31 | OP ---
PATIENT NAME: ASHER CHOE MEDICAL RECORD: [id number] :49 LOCATION:D.I D.CV03 ADMISSION DATE:11/27/19 SURGEON: GERMANIA GAN MD DATE OF OPERATION: 12/01/2019 SURGEON: Germania Gan MD PROCEDURES PERFORMED: 1. Right thoracotomy with resection of the giant bulla. 2. Mechanical pleurodesis. 3. Bronchoscopy. 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 ANESTHESIA: General endotracheal anesthesia, double lumen. SPECIMENS: Resected bulla. COMPLICATIONS: None. CONDITION: Stable. DISPOSITION: CV ICU. OPERATIVE FINDINGS: As seen on the CT scan a giant apical bulla extending medially across the mediastinum, this was resected, there were no intraoperative air leaks. OPERATIVE INDICATION: Spontaneous pneumothorax, giant bulla. DESCRIPTION OF PROCEDURE: The patient was brought to the operating suite double lumen endotracheal anesthesia was obtained. Bronchoscopy was performed to confirm position. Bronchoscopy was used to remove thick mucus debris at the origin of the right main stem bronchus. The patient turned to left lateral decubitus position with appropriate padding. A right lateral thoracotomy was performed. The section of the rib was taken out to allow a trapdoor type thoracotomy, pleural cavity was entered. The inferior pulmonary ligament was freed. The giant bulla was identified as seen and stapled off. Then, the bulla was resected from the mediastinum as much as safely possible, but not across the midline in front of the aorta. The lung was reinflated. There were no air leaks. Progel was used. Chest tubes were placed apically and inferiorly. After reinflating the lung under water to ensure no air leak, the chest was closed with pericostal sutures running muscle layers, running subcutaneous, running skin, Dermabond. The patient extubated stable to CV ICU. TRANSINT:[id number] Voice Confirmation ID: [id number] DOCUMENT ID: [id number] OPERATIVE REPORT [id number] ASHER CHOE GERMANIA GAN MD at 0731 CC: JASON ALVA MD [id number] DICTATION DATE: 12/01/19 1054 EDGE POLISHER: 12/01/19 [address] [facility] [address] [place] [id number]
--- NOTE | 2019-12-02 08:12 | NUR ---
ALERT AND VERBALLY APPROPRIATE-INCENTIVE DONE WELL-SR ON MONITOR-SCD'S TURNED ON AND PURPOSE EXPLAINED-SCD MACHINE AQUIRED AT THIS TIME
[2019-12-03] VITALS (26 sets, daily range): BP systolic 91–159; BP diastolic 55–82
--- NOTE | 2019-12-03 01:55 | NUR ---
CHG BATH GIVEN WITH PEARSON CARE. DRESSING TO RIGHT LATERAL CHEST CHANGED. SEROUS DRAINAGE NOTED. COMPLETE LINEN CHANGE PROVIDED WELL. PT HAS ATTEMPTED TO USE BEDPAN X2 WITH FLATULENCE ONLY NOTED.
[2019-12-03 05:58] LABS: HEMATOCRIT 38.9 % (42.0-54.0); HEMOGLOBIN 12.9 g/dL (13.5-17.5); MCH 30.8 pg (26.0-34.0); MCHC 33.2 g/dL (31.0-37.0); MCV 92.8 fL (80.0-100.0); MEAN PLATELET VOLUME 10.6 fL (7.4-10.4); RBC 4.19 10x6/uL (4.20-6.10); RDW 14.2 % (11.5-14.5); WBC 10.8 10x3/uL (4.8-10.8)
[2019-12-03 06:25] LABS: ALBUMIN 2.9 g/dL (3.4-5.0); BILIRUBIN - TOTAL 2.68 mg/dL (0.2-1.3); CARBON DIOXIDE 25.2 mmol/L (21.0-32.0); CREATININE - SERUM 1.1 mg/dL (0.6-1.3); POTASSIUM - SERUM 4.2 mmol/L (3.5-5.1); PROTEIN - SERUM 6.2 g/dL (6.4-8.2)
--- NOTE | 2019-12-03 11:11 | NUR ---
Nutrition Follow-up: POD 2 R thoracotomy, resection of giant bulla, bronch, pleurodesis. Pt sleeping soundly at time of visit this AM. Chart reviewed. Diet: Regular PO intake: 15-50% recorded yesterday Wt: 215# (12/02) Last BM: 11/29 per chart Labs noted: Na 131, Ca 8.0, Alb 2.9 Meds noted: Protonix, Miralax, Mylicon -Encourage PO intake and honor food preferences within diet restrictions. -Offer nutrition supplements. -Monitor wt. -RD following.
--- NOTE | 2019-12-03 20:12 | MORECARE ---
CASE MANAGEMENT DISCHARGE SUMMARY PATIENT: ASHER CHOE UNIT: [id number] ADM DATE: 11/27/19 AGE: 74 : [birth year] SEX: M ROOM/BED: D[facility] AUTHOR: CHRYSTAL,DOC PHYSICIAN: REFERRING PHYSICIAN: LANI BAILEY MD DATE OF SERVICE: 12/03/19 Discharge Plan Patient Name: ASHER CHOE Facility: [facility]:[place] : 1945 Planned Disposition: Home Anticipated Discharge Date: Discharge Date: Expected LOS: Initial Reviewer: [email or web address] Initial Review Date: 11/27/2019 Generated: 12/03/19 9:11 pm Comments DCP- Discharge Planning Updated by [email or web address]: Stefany Valentino on 12/03/19 7:[address] LATE ENTRY 12/02/19 Patient Name: ASHER CHOE Admission Status: ER Accout number: [id number] Admission Date: 11-27-2019 : 1945 Admission Diagnosis:PNEUMOTHORAX, UNSPECIFIED Attending: LANI BAILEY Current LOS: 5 Anticipated DC Date: Planned Disposition: Home Primary Insurance: MEDICARE A & B Discharge Planning Comments: CM met with patient to complete initial dc planning assessment. CM educated patient on the CM role and verbal consent given by patient to complete assessment. Patient lives at home with family. Patient is independent. At discharge patient plans to return home and feels this is a safe discharge. CM discussed availability of home health, rehab services, and medical equipment. Patient will have family to transport home. Patient denied known discharge needs at this time. CM will continue to follow and will assist as needed with dc plans/needs. Zoo Veterinarian: Stefany Valentino DCPIA - Discharge Planning Initial Assessment Updated by [email or web address]: Stefany Valentino on 12/03/19 8:08 pm * Is the patient Alert and Oriented? Yes * How many steps to enter\exit or inside your home? * PCP melissa * [facility] * Preadmission Environment Home with Family * ADLs Independent * Other Equipment HOME 02, CPAP, NEBULIZER * List name and contact numbers for known caregivers / representatives who currently or will assist patient after discharge: RAUL CHOE - - [phone], * Verbal permission to speak to the caregivers and representatives has been obtained from the patient. Yes * Community resources currently utilized None * Additional services required to return to the preadmission environment? No * Can the patient safely return to the preadmission environment? Yes * Has this patient been hospitalized within the prior 30 days at any hospital? No Patient Name: ASHER CHOE Page [id number] at 2012 All edits/amendments must be made on the electronic document DICTATION DATE: 12/03/192010 JIG HAND: KENDALL 12/03/192010 RPT#: [id number] DC DATE: STATUS: ADM IN [facility] [address] [place] [address] END OF REPORT
[2019-12-04] VITALS (23 sets, daily range): BP systolic 65–152; BP diastolic 43–110
--- NOTE | 2019-12-04 00:15 | NUR ---
PATIENT RIPPED OUT HIS A-LINE, PRESSURE WAS HELP TO SITE AND HEMOSTASIS MAINTAINED. GAVE INSTRUCTION TO NOT PULL ANYTHING ELSE OUT. CALLED AND NOTIFIED DR VAUGHN. RESTRAINTS APPLIED AT 0100 AND CONTINUOUS OBSERVATION PROVIDED.
[2019-12-04 05:08] LABS: HEMOGLOBIN 13.1 g/dL (13.5-17.5); MCHC 33.6 g/dL (31.0-37.0); MCV 92.4 fL (80.0-100.0); MEAN PLATELET VOLUME 10.6 fL (7.4-10.4); RBC 4.22 10x6/uL (4.20-6.10); RDW 13.9 % (11.5-14.5)
[2019-12-04 05:12] LABS: WBC 7.7 10x3/uL (4.8-10.8)
[2019-12-04 05:17] LABS: ALBUMIN 2.7 g/dL (3.4-5.0); ALKALINE PHOSPHATASE 90 U/L (30-120); ALT (SGPT) 43 U/L (10-68); BILIRUBIN - TOTAL 1.53 mg/dL (0.2-1.3); CALC OSMOLALITY 274 mosm/kg (275-300); CALCIUM 8.2 mg/dL (8.5-10.1); CARBON DIOXIDE 30.1 mmol/L (21.0-32.0); CHLORIDE - SERUM 101 mmol/L (98-107); CREATININE - SERUM 0.9 mg/dL (0.6-1.3); GLUCOSE 104 mg/dL (74-106); POTASSIUM - SERUM 4.3 mmol/L (3.5-5.1); SODIUM 137 mmol/L (136-145); eGFR NON AFRICAN AMERICAN 88 mL/min (90-120)
[2019-12-04 05:19] LABS: UREA NITROGEN 14 mg/dL (7-18)
[2019-12-05] VITALS (23 sets, daily range): BP systolic 122–181; BP diastolic 51–94
--- NOTE | 2019-12-05 00:53 | NUR ---
PT PULLING AT LINES AND TUBES. MULTIPLE ATTEMPTS TO REORIENT. ORDER RECEIVED FOR RESTRAINTS.
[2019-12-05 06:08] LABS: BASOPHILS 0.3 % (0-2); EOSINOPHILS 2.8 % (0-7); HEMATOCRIT 39.5 % (42.0-54.0); IMMATURE GRANULOCYTES 0.1 % (0-5); LYMPHOCYTES 12.1 % (15-50); MCH 30.6 pg (26.0-34.0); MCHC 32.9 g/dL (31.0-37.0); MCV 92.9 fL (80.0-100.0); MONOCYTES 14.8 % (2-11); NEUTROPHILS 69.9 % (40-80); PLATELET COUNT 153 10x3/uL (130-400); RBC 4.25 10x6/uL (4.20-6.10); RDW 13.9 % (11.5-14.5)
[2019-12-05 06:24] LABS: ALBUMIN 2.7 g/dL (3.4-5.0); ALKALINE PHOSPHATASE 97 U/L (30-120); ALT (SGPT) 53 U/L (10-68); BILIRUBIN - TOTAL 1.54 mg/dL (0.2-1.3); CALC OSMOLALITY 271 mosm/kg (275-300); CALCIUM 8.3 mg/dL (8.5-10.1); CARBON DIOXIDE 32.5 mmol/L (21.0-32.0); CHLORIDE - SERUM 100 mmol/L (98-107); GLUCOSE 83 mg/dL (74-106); PROTEIN - SERUM 6.4 g/dL (6.4-8.2); SODIUM 136 mmol/L (136-145); UREA NITROGEN 15 mg/dL (7-18); eGFR NON AFRICAN AMERICAN 78 mL/min (90-120)
--- NOTE | 2019-12-05 11:15 | NUR ---
DR VAUGHN AT BEDSIDE. CT REMOVED USING STERILE TECHNIQUE. VSS WILL CONTINUE TO MONITOR.
--- NOTE | 2019-12-05 12:00 | NUR ---
PEARSON DC. EPIDURAL DC. PT AMBULATED TO CHAIR. VSS WILL CONTINUE TO MONITOR.
--- NOTE | 2019-12-05 15:18 | NUR ---
Nutrition Follow-up: Diet: Regular PO intake: ~50% average. He states that he would eat better if the food wasn't always cold. He does not want Ensure at this time. Last BM: 11/30/19. Wt: 224# (12/05/19); Admit Wt: 217# (11/27/19) Meds noted: miralax Recommend continue current diet. Encouraged PO intake. RD following.
--- NOTE | 2019-12-05 17:00 | NUR ---
PATIENT RESTING IN BED VERBALIZES NO NEEDS WILL CONTINUE POC.
[2019-12-06] VITALS (23 sets, daily range): BP systolic 115–166; BP diastolic 63–88
[2019-12-06 05:31] LABS: BASOPHILS 0.4 % (0-2); EOSINOPHILS 3.3 % (0-7); HEMATOCRIT 43.5 % (42.0-54.0); HEMOGLOBIN 14.7 g/dL (13.5-17.5); IMMATURE GRANULOCYTES 0.3 % (0-5); LYMPHOCYTES 15.6 % (15-50); MCH 31.1 pg (26.0-34.0); MCHC 33.8 g/dL (31.0-37.0); MCV 92.2 fL (80.0-100.0); MEAN PLATELET VOLUME 9.6 fL (7.4-10.4); MONOCYTES 16.7 % (2-11); NEUTROPHILS 63.7 % (40-80); PLATELET COUNT 171 10x3/uL (130-400); RBC 4.72 10x6/uL (4.20-6.10); RDW 13.7 % (11.5-14.5); WBC 7.9 10x3/uL (4.8-10.8)
[2019-12-06 05:38] LABS: CALCIUM 8.6 mg/dL (8.5-10.1); CARBON DIOXIDE 32.6 mmol/L (21.0-32.0); CHLORIDE - SERUM 100 mmol/L (98-107); CREATININE - SERUM 0.8 mg/dL (0.6-1.3); GLUCOSE 113 mg/dL (74-106); SODIUM 137 mmol/L (136-145); eGFR NON AFRICAN AMERICAN > 90 mL/min (90-120)
[2019-12-06 05:40] LABS: CALC OSMOLALITY 273 mosm/kg (275-300); POTASSIUM - SERUM 3.8 mmol/L (3.5-5.1); UREA NITROGEN 10 mg/dL (7-18)
--- NOTE | 2019-12-06 11:17 | NUR ---
1030: DR. VAUGHN HERE. CT CHANGED TO WATER SEAL PER ORDER.
--- NOTE | 2019-12-06 19:00 | NUR ---
REPORT RECEIVED. RECEIVED PATIENT IN BED, RESTING WITH EYES CLOSED. EASILY ROUSED AND ALERT. ORIENTED TO PERSON PLACE AND SITUATION WITH SOME CONFUSION TO DATE/TIME. REORIENTS WELL. SPEECH CLEAR. ASSESSMENT COMPLETED PER FLOW SHEET WITH NO ACUTE DISTRESS OBSERVED. MONITORS CONNECTED TO PATIENT WITH ALARMS SET. VSS. NSR ON MONITOR. RT CT TO WATERSEAL WITH NO LEAK OBSERVED, DRAINING SCANT AMOUNT OF SEROUS FLUID INTO COLLECTION CHAMBER. CALL LIGHT IN REACH AND ABLE TO UTILIZE TO MAKE NEEDS KNOWN. WILL CONT CURRENT POC
[2019-12-07] VITALS (22 sets, daily range): BP systolic 131–161; BP diastolic 55–80
[2019-12-07 05:26] LABS: BASOPHILS 0.4 % (0-2); EOSINOPHILS 4.3 % (0-7); HEMATOCRIT 40.8 % (42.0-54.0); HEMOGLOBIN 13.8 g/dL (13.5-17.5); IMMATURE GRANULOCYTES 0.1 % (0-5); LYMPHOCYTES 13.4 % (15-50); MCHC 33.8 g/dL (31.0-37.0); MCV 91.7 fL (80.0-100.0); MEAN PLATELET VOLUME 9.5 fL (7.4-10.4); MONOCYTES 17.4 % (2-11); NEUTROPHILS 64.4 % (40-80); PLATELET COUNT 165 10x3/uL (130-400); RBC 4.45 10x6/uL (4.20-6.10); RDW 13.9 % (11.5-14.5); WBC 7.7 10x3/uL (4.8-10.8)
[2019-12-07 05:37] LABS: CALC OSMOLALITY 269 mosm/kg (275-300); CARBON DIOXIDE 34.8 mmol/L (21.0-32.0); CHLORIDE - SERUM 101 mmol/L (98-107); CREATININE - SERUM 0.8 mg/dL (0.6-1.3); GLUCOSE 117 mg/dL (74-106); POTASSIUM - SERUM 3.5 mmol/L (3.5-5.1); SODIUM 135 mmol/L (136-145); UREA NITROGEN 10 mg/dL (7-18); eGFR NON AFRICAN AMERICAN > 90 mL/min (90-120)
[2019-12-08] VITALS (24 sets, daily range): BP systolic 126–165; BP diastolic 54–80
[2019-12-08 05:07] LABS: BASOPHILS 0.2 % (0-2); EOSINOPHILS 3.4 % (0-7); HEMATOCRIT 43.8 % (42.0-54.0); HEMOGLOBIN 14.5 g/dL (13.5-17.5); IMMATURE GRANULOCYTES 0.3 % (0-5); LYMPHOCYTES 10.6 % (15-50); MCH 30.5 pg (26.0-34.0); MCHC 33.1 g/dL (31.0-37.0); MCV 92.2 fL (80.0-100.0); MEAN PLATELET VOLUME 9.8 fL (7.4-10.4); NEUTROPHILS 70.5 % (40-80); PLATELET COUNT 198 10x3/uL (130-400); RBC 4.75 10x6/uL (4.20-6.10); RDW 13.7 % (11.5-14.5)
[2019-12-08 05:08] LABS: WBC 10.6 10x3/uL (4.8-10.8)
[2019-12-08 05:15] LABS: CALC OSMOLALITY 275 mosm/kg (275-300); CALCIUM 8.7 mg/dL (8.5-10.1); CARBON DIOXIDE 32.6 mmol/L (21.0-32.0); CHLORIDE - SERUM 102 mmol/L (98-107); CREATININE - SERUM 0.9 mg/dL (0.6-1.3); GLUCOSE 116 mg/dL (74-106); SODIUM 138 mmol/L (136-145); UREA NITROGEN 10 mg/dL (7-18); eGFR NON AFRICAN AMERICAN 88 mL/min (90-120)
--- NOTE | 2019-12-08 07:00 | NUR ---
BEDSIDE REPORT RECEIVED. SHIFT ASSESSMENT COMPLETED PER FLOWSHEET, SEE FLOWSHEET FOR INFORMATION. UPON ENTERING ROOM, PT HAD GOTTEN UP WITHOUT ASSISTANCE TO HIS CHAIR BUT HIS HEART RATE DID INCREASE TO 130. CHEST TUBE IN PLACE. PT DENIES ANY NEEDS OR DISTRESS AT THIS TIME. VSS AFTER SITTING PT DOWN AND TELLING HIM TO SLOW HIS BREATHING DOWN, HEART RATE DECREASED TO 89. WILL CONT TO MONITOR.
--- NOTE | 2019-12-08 10:36 | NUR ---
AT BEDSIDE TO REMOVE RIGHT LATERAL CHEST TUBE. WILL CONT TO MONITOR.
--- NOTE | 2019-12-08 11:04 | NUR ---
CHEST TUBE REMOVED BY WITH THIS NURSE AND GLO ASHRAF AT BEDSIDE. WILL CONT TO MONITOR.
--- NOTE | 2019-12-08 12:28 | NUR ---
Nutrition Follow-up: POD 7. Good/fair PO intake. Diet: Regular PO intake: 83% avg x 8 meals Wt: 217.1# (12/07) Labs noted: Glu 116 Meds noted: Protonix, Mylicon -Encourage PO intake and honor food preferences within diet restrictions. -Monitor wt. -RD following.
--- NOTE | 2019-12-08 21:00 | NUR ---
1900 ASSESSMENT DONE SEE FLOW SHEET VSS WILL CONTINUE TO MONITOR. 2100 MEDS GIVEN PER MAR. VSS WILL CONTINUE TO MONITOR.
--- NOTE | 2019-12-08 23:16 | NUR ---
REASSESSMENT COMPLETE. VSS NO SIGNS OF ACUTE DISTRESS NOTED.
[2019-12-09] VITALS (17 sets, daily range): BP systolic 108–158; BP diastolic 60–84
--- NOTE | 2019-12-09 04:59 | NUR ---
PATIENT REFUSED PATIENT BATH.
[2019-12-09 05:31] LABS: BASOPHILS 0.4 % (0-2); EOSINOPHILS 4.4 % (0-7); HEMOGLOBIN 13.5 g/dL (13.5-17.5); IMMATURE GRANULOCYTES 0.2 % (0-5); LYMPHOCYTES 14.9 % (15-50); MCH 30.5 pg (26.0-34.0); MCHC 32.9 g/dL (31.0-37.0); MCV 92.6 fL (80.0-100.0); MEAN PLATELET VOLUME 10.1 fL (7.4-10.4); MONOCYTES 14.9 % (2-11); NEUTROPHILS 65.2 % (40-80); PLATELET COUNT 204 10x3/uL (130-400); RBC 4.43 10x6/uL (4.20-6.10); RDW 13.9 % (11.5-14.5); WBC 8.4 10x3/uL (4.8-10.8)
[2019-12-09 05:49] LABS: CALC OSMOLALITY 273 mosm/kg (275-300); CALCIUM 8.5 mg/dL (8.5-10.1); CARBON DIOXIDE 31.6 mmol/L (21.0-32.0); CHLORIDE - SERUM 101 mmol/L (98-107); CREATININE - SERUM 0.8 mg/dL (0.6-1.3); GLUCOSE 110 mg/dL (74-106); POTASSIUM - SERUM 4.1 mmol/L (3.5-5.1); SODIUM 137 mmol/L (136-145); UREA NITROGEN 11 mg/dL (7-18); eGFR NON AFRICAN AMERICAN > 90 mL/min (90-120)
[2019-12-09] MEDS ORDERED: NORVASC5 MG PO (08:57)
[2019-12-09] MEDS ORDERED: LOW DOSE ASPIRI81 M1 PO (08:58)
[2019-12-09] MEDS ORDERED: MUCINEX600 MG PO (09:01)
--- NOTE | 2019-12-09 09:51 | NUR ---
UP IN CHAIR BESIDE BED AT THIS TIME. VSS. NO ACUTE DISTRESS NOTED. PT C/O SOME LT LATERAL DISCOMFORT FROM DCD CHEST TUBE SITE REQUESTING PRN PAIN MED. ADMIN PER PT REQUEST. PT DENIES ANY OTHER NEEDS. WILL CONTINUE PLAN OF CARE.
[2019-12-09] MEDS ORDERED: HYDROCODON-ACE1 EA10 PO (10:45)
--- NOTE | 2019-12-09 12:21 | NUR ---
NOTED ORDERS FOR PT TO DC HOME TODAY. CASE MANAGEMENT PREPARING HOME HEALTH AND OXYGEN FOR HOME.
--- NOTE | 2019-12-09 12:44 | MORECARE ---
CASE MANAGEMENT DISCHARGE SUMMARY PATIENT: ASHER CHOE UNIT: [id number] ADM DATE: 11/27/19 AGE: 74 : [birth year] SEX: M ROOM/BED: D[facility] AUTHOR: CHRYSTAL,DOC PHYSICIAN: REFERRING PHYSICIAN: LANI BAILEY MD DATE OF SERVICE: 12/09/19 Discharge Plan Patient Name: ASHER CHOE Facility: [facility]:[place] : 1945 Planned Disposition: Home Anticipated Discharge Date: Discharge Date: Expected LOS: Initial Reviewer: [email or web address] Initial Review Date: 11/27/2019 Generated: 12/09/19 1:44 pm DCP- Discharge Planning Updated by [email or web address]: Stefany Valentino on 12/03/19 7:[address] LATE ENTRY 12/02/19 Patient Name: ASHER CHOE Admission Status: ER Accout number: [id number] Admission Date: 11-27-2019 : 1945 Admission Diagnosis:PNEUMOTHORAX, UNSPECIFIED Attending: LANI BAILEY Current LOS: 5 Anticipated DC Date: Planned Disposition: Home Primary Insurance: MEDICARE A & B Discharge Planning Comments: CM met with patient to complete initial dc planning assessment. CM educated patient on the CM role and verbal consent given by patient to complete assessment. Patient lives at home with family. Patient is independent. At discharge patient plans to return home and feels this is a safe discharge. CM discussed availability of home health, rehab services, and medical equipment. Patient will have family to transport home. Patient denied known discharge needs at this time. CM will continue to follow and will assist as needed with dc plans/needs. Quarantine Officer: Stefany Valentino DCPIA - Discharge Planning Initial Assessment Updated by [email or web address]: Stefany Valentino on 12/03/19 8:08 pm * Is the patient Alert and Oriented? Yes * How many steps to enter\exit or inside your home? * PCP melissa * [facility] * Preadmission Environment Home with Family * ADLs Independent * Other Equipment HOME 02, CPAP, NEBULIZER * List name and contact numbers for known caregivers / representatives who currently or will assist patient after discharge: RAUL CHOE - - [phone], * Verbal permission to speak to the caregivers and representatives has been obtained from the patient. Yes * Community resources currently utilized None * Additional services required to return to the preadmission environment? No * Can the patient safely return to the preadmission environment? Yes * Has this patient been hospitalized within the prior 30 days at any hospital? No External Providers External Provider: Daisy Next Contact Date: Service Request Date: Service Type: Resolution: Reviewer: Comments: External Provider: [facility] Next Contact Date: Service Request Date: Service Type: Resolution: Reviewer: Comments: Coverage Notice Reviewer: [email or web address] Virgilio Valentino Notice Issued Date-Time: 12/09/2019 11:45 Notice Type: Patient Choice Letter Notice Delivered To: Patient Relationship to Patient: Self Wool Tamper Name: Delivery Method: HAND - Hand Delivered Nadia Days: Prior Verbal Notification: Recipient Understood Notice: Yes Recipient Signature: Yes Med Rec Note Co-signed by Attending: Coverage Notice Comment: [facility] Reviewer: [email or web address] Virgilio Valentino Notice Issued Date-Time: 12/09/2019 11:45 Notice Type: IM Discharge Notice Notice Delivered To: Patient Relationship to Patient: Self Wool Tamper Name: Delivery Method: HAND - Hand Delivered Nadia Days: Prior Verbal Notification: Recipient Understood Notice: Yes Recipient Signature: Yes Med Rec Note Co-signed by Attending: Coverage Notice Comment: Last DP export: 12/03/19 7:12 p Patient Name: ASHER CHOE Page [id number] at 1244 All edits/amendments must be made on the electronic document DICTATION DATE: 12/09/19 1244 AMMUNITION AND EXPLOSIVES HANDLER: KENDALL 12/09/19 1244 RPT#: [id number] DC DATE: STATUS: ADM IN [facility] [address] [place] [address] END OF REPORT
--- NOTE | 2019-12-09 13:33 | NUR ---
6-[address] ALVA MADE FOR JANUARY 26 AT 1115. SPOKE WITH TRISTIN AT DR ALVA'S OFFICE.
--- NOTE | 2019-12-09 13:36 | NUR ---
2 WK FOLLOWUP APPT WITH DR BAILEY MADE FOR SunDec AT 1030. SPOKE DANIELLE MAN AT DR BAILEY'S OFFICE.
--- NOTE | 2019-12-09 15:55 | NUR ---
CVL TO RT SUBCLAVIAN DCD AT THIS TIME. CATHETER TIP INTACT. PRESSURE DRESSING PLACED AFTER PRESSUED PLACED X 5 MIN. NO S/S BLEEDING. DRESSING CDI. WILL CONTINUE PLAN OF CARE.
--- NOTE | 2019-12-09 16:54 | NUR ---
DR RODRI MAN NURSE, IN PTS ROOM SPEAKING WITH PT PROVIDING DISCHARGE TEACHINGS. ALL QUESTIONS AND CONCERNS ADDRESSED.
--- NOTE | 2019-12-09 17:03 | NUR ---
PER DONOVAN, DR MACE NURSE, WILL PROVIDE PT WITH [facility] TO TAKE TONIGHT SINCE PT IS CONCERNED THAT HE WILL NOT ARRIVE TO PHARMACY IN TIME TO HAVE THAT SCRIPT FILLED UNTIL TOMORROW.
--- NOTE | 2019-12-09 17:43 | NUR ---
PT DISCHARGED HOME AT THIS TIME WITH ALL PERSONAL ITEMS, DISCHARGE PAPERWORK, DISCHARGE TEACHINGS, UPCOMING APPT INFORMATION, NEW PRESCRIPTION INFORMATION, AND PLAVIX X 1 FOR TONIGHT (PER DR GAN NURSE REQUEST SINCE UNABLE TO GO TO PHARMACY UNTIL TOMORROW) AND MATERAL FOR DRESSING CHANGE TO RT LATERAL SIDE IF NEEDED. VSS. NO ACUTE DISTRESS NOTED. LEFT WITH VIA PERSONAL VEHICLE. NURSE ASSISTED PT TO VEHICLE. PT TRANSFERRED FROM WHEELCHAIR TO VEHICLE INDEPENDENTLY. PT HAS MOBILE OXYGEN AND INFORMATION FOR [facility]. DENIES ANY FURTHER QUESTIONS, CONCERNS, OR NEEDS. NO FURTHER ACTIONS.
--- NOTE | 2019-12-10 19:42 | MORECARE ---
CASE MANAGEMENT DISCHARGE SUMMARY PATIENT: ASHER CHOE UNIT: [id number] ADM DATE: 11/27/19 AGE: 74 : [birth year] SEX: M ROOM/BED: D.[facility] AUTHOR: CHRYSTAL,DOC PHYSICIAN: REFERRING PHYSICIAN: LANI BAILEY MD DATE OF SERVICE: 12/10/19 Discharge Plan Patient Name: ASHER CHOE Facility: [facility]:[employer] : 1945 Planned Disposition: Home Anticipated Discharge Date: Discharge Date: 12/09/2019 Expected LOS: Initial Reviewer: [id number] Initial Review Date: 11/27/2019 Generated: 12/10/19 8:42 pm Comments DCP- Discharge Planning Updated by [email or web address]: Stefany Valentino on 12/10/19 6:[address] CM contacted [facility] for portable 02 and faxed over records. [facility] to bring 02 tank to room prior to discharge. CM also received order for for dressing changes daily and PT. CM contacted [facility] and they will admit patient 12/09. D/C IMM signed. CM will continue to follow and assist as needed with discharge planning / needs. DCP- Discharge Planning Updated by [email or web address]: Stefany Valentino on 12/03/19 7:[address] LATE ENTRY 12/02/19 Patient Name: ASHER CHOE Admission Status: ER Accout number: [id number] Admission Date: 11-27-2019 : 1945 Admission Diagnosis:PNEUMOTHORAX, UNSPECIFIED Attending: LANI BAILEY Current LOS: 5 Anticipated DC Date: Planned Disposition: Home Primary Insurance: MEDICARE A & B Discharge Planning Comments: CM met with patient to complete initial dc planning assessment. CM educated patient on the CM role and verbal consent given by patient to complete assessment. Patient lives at home with family. Patient is independent. At discharge patient plans to return home and feels this is a safe discharge. CM discussed availability of home health, rehab services, and medical equipment. Patient will have family to transport home. Patient denied known discharge needs at this time. CM will continue to follow and will assist as needed with dc plans/needs. Acid Splicer: Stefany Valentino DCPIA - Discharge Planning Initial Assessment Updated by [email or web address]: Stefany Valentino on 12/03/19 8:08 pm * Is the patient Alert and Oriented? Yes * How many steps to enter\exit or inside your home? * PCP torres * [facility] * Preadmission Environment Home with Family * ADLs Independent * Other Equipment HOME 02, CPAP, NEBULIZER * List name and contact numbers for known caregivers / representatives who currently or will assist patient after discharge: RAUL CHOE - - [phone], * Verbal permission to speak to the caregivers and representatives has been obtained from the patient. Yes * Community resources currently utilized None * Additional services required to return to the preadmission environment? No * Can the patient safely return to the preadmission environment? Yes * Has this patient been hospitalized within the prior 30 days at any hospital? No Coverage Notice Reviewer: [email or web address] Virgilio Valentino Notice Issued Date-Time: 12/09/2019 11:45 Notice Type: Patient Choice Letter Notice Delivered To: Patient Relationship to Patient: Self Runstitching Machine Operator Name: Delivery Method: HAND - Hand Delivered Nadia Days: Prior Verbal Notification: Recipient Understood Notice: Yes Recipient Signature: Yes Med Rec Note Co-signed by Attending: Coverage Notice Comment: [facility] Reviewer: [email or web address] Virgilio Valentino Notice Issued Date-Time: 12/09/2019 11:45 Notice Type: IM Discharge Notice Notice Delivered To: Patient Relationship to Patient: Self Runstitching Machine Operator Name: Delivery Method: HAND - Hand Delivered Nadia Days: Prior Verbal Notification: Recipient Understood Notice: Yes Recipient Signature: Yes Med Rec Note Co-signed by Attending: Coverage Notice Comment: Last DP export: 12/09/19 11:44 a Patient Name: ASHER CHOE Page [id number] at 1942 All edits/amendments must be made on the electronic document DICTATION DATE: 12/10/191941 VAT OVERHAULER: KENDALL 12/10/191941 RPT#: [id number] DC DATE:12/09/19 STATUS: DIS IN [facility] [address] [place] [address] END OF REPORT
== END 2019-12-09 17:46 | disposition home or self-care (01) | DRG 163 ==
LOC: D.ER 12:26 → D.MS 14:09 → D.CVICU 14:09
PROVIDERS: Family Medicine; Internal Medicine Cardiovascular Disease; Internal Medicine Pulmonary Disease; Thoracic Surgery (Cardiothoracic Vascular Surgery); ADMIT Family Medicine; ATTEND Family Medicine
PROC: 0W9930Z Drainage of Right Pleural Cavity with Drainage Device, Percutaneous Approach (ICD-10-PCS; 2019-11-27)
PROC: 0W29X0Z Change Drainage Device in Right Pleural Cavity, External Approach (ICD-10-PCS; 2019-11-30)
PROC: 0B5N0ZZ Destruction of Right Pleura, Open Approach (ICD-10-PCS; 2019-12-01)
PROC: 0BJ08ZZ Inspection of Tracheobronchial Tree, Via Natural or Artificial Opening Endoscopic (ICD-10-PCS; 2019-12-01)
PROC: 0BBC0ZZ Excision of Right Upper Lung Lobe, Open Approach (ICD-10-PCS; principal; 2019-12-01 18:00)
DX: J43.0 Unilateral pulmonary emphysema [MacLeod's syndrome] (principal); J96.92 Respiratory failure, unspecified with hypercapnia; J96.91 Respiratory failure, unspecified with hypoxia; J93.83 Other pneumothorax; N13.8 Other obstructive and reflux uropathy; I10 Essential (primary) hypertension; N40.1 Benign prostatic hyperplasia with lower urinary tract symptoms; K59.00 Constipation, unspecified; R11.2 Nausea with vomiting, unspecified; J43.9 Emphysema, unspecified; L73.9 Follicular disorder, unspecified; R06.03 Acute respiratory distress

== ENCOUNTER → 2019-12-17 09:07 | Outpatient (CLI) | payer MEDICARE, BC ==
[2019-11-29 11:20] VITALS: BMI 27.9
[~2019-12-17 09:07] MED LIST changes: +LEXAPRO20 MG PO; +LOW DOSE ASPIRI81 M1 PO; +MUCINEX600 MG PO; +NORVASC5 MG PO
[2019-12-17 10:11] LABS: BASOPHILS 0.4 % (0-2); EOSINOPHILS 2.9 % (0-7); HEMATOCRIT 43.6 % (42.0-54.0); HEMOGLOBIN 14.6 g/dL (13.5-17.5); IMMATURE GRANULOCYTES 0.2 % (0-5); LYMPHOCYTES 15.2 % (15-50); MCH 30.6 pg (26.0-34.0); MCHC 33.5 g/dL (31.0-37.0); MCV 91.4 fL (80.0-100.0); MEAN PLATELET VOLUME 9.7 fL (7.4-10.4); MONOCYTES 11.3 % (2-11); RBC 4.77 10x6/uL (4.20-6.10); RDW 13.9 % (11.5-14.5)
[2019-12-17 10:12] LABS: PLATELET COUNT 281 10x3/uL (130-400)
[2019-12-17 10:22] LABS: CALC OSMOLALITY 264 mosm/kg (275-300); CALCIUM 9.1 mg/dL (8.5-10.1); CARBON DIOXIDE 25.6 mmol/L (21.0-32.0); CHLORIDE - SERUM 100 mmol/L (98-107); GLUCOSE 121 mg/dL (74-106); POTASSIUM - SERUM 4.5 mmol/L (3.5-5.1); SODIUM 131 mmol/L (136-145); UREA NITROGEN 14 mg/dL (7-18); eGFR NON AFRICAN AMERICAN 78 mL/min (90-120)
== END | disposition home or self-care (01) ==
LOC: D.RAD 09:07
PROVIDERS: ATTEND Thoracic Surgery (Cardiothoracic Vascular Surgery)
DX: Z98.890 Other specified postprocedural states (principal)